=== PATIENT | male | born 1975 | race Two or more races ===

== ENCOUNTER 2019-08-21 16:47 | Emergency (ER) | payer OTHER, MEDICAID ==
[~2019-08-21] VITALS: Ht 167.6 cm; Wt 95.3 kg
[2019-08-21 16:54] VITALS: BP 141/81
[2019-08-21] MEDS ORDERED: PANTOPRAZOLE 40 MG/10 ML VIAL INJ IV STA (18:10)
[2019-08-21] MEDS ORDERED: SODIUM CHLORIDE 0.9% 1,000 ML IVB ONE (18:10)
[2019-08-21] MEDS ORDERED: ONDANSETRON HCL 4 MG/2 ML VIAL IV ONE (18:15)
[2019-08-21] MEDS ORDERED: MORPHINE SULFATE 4 MG/ML SYR/VIAL IV ONE (18:15)
[2019-08-21 18:31] LABS: Urine Specific Gravity 1.024 (1.001-1.035)
[2019-08-21 18:32] LABS: Urine Blood Negative /uL (Negative)
== END 2019-08-21 19:10 | disposition left against medical advice (07) ==
LOC: ER 16:47
DX: R10.84 Generalized abdominal pain (principal); R11.2 Nausea with vomiting, unspecified; R19.7 Diarrhea, unspecified; E78.5 Hyperlipidemia, unspecified; Z59.0 Homelessness
CPT/HCPCS: 36415; 74176; 81003